=== PATIENT | female | born 1980 | race Caucasian/White ===

== ENCOUNTER 2020-06-11 17:20 | Outpatient (CLI) | payer OTHER, SELFPAY | END 2020-06-11 17:21 | disposition home or self-care (01) | LOC: ANHCOVIDVC 17:20 | PROVIDERS: PCP Family Medicine | DX: Z23 Encounter for immunization (principal) | CPT/HCPCS: 0001A; 91300 ==

== ENCOUNTER 2020-07-02 17:17 | Outpatient (CLI) | payer OTHER, SELFPAY | END 2020-07-02 17:18 | disposition home or self-care (01) | LOC: ANHCOVIDVC 17:17 | PROVIDERS: PCP Family Medicine | DX: Z23 Encounter for immunization (principal) | CPT/HCPCS: 0002A; 91300 ==